=== PATIENT | male | born 1960 | race Caucasian/White ===

== ENCOUNTER → 2022-02-05 | Outpatient (CLI) | payer OTHER ==
--- NOTE | 2022-02-05 14:29 | RAD ---
EXAMINATION: XR KNEE_RT 1-2 VIEWS CLINICAL HISTORY: Right knee pain. TECHNIQUE: XR KNEE_RT 1-2 VIEWS Number of Images/Views: 2 COMPARISON: None FINDINGS: Moderate medial and mild to moderate lateral compartment narrowing and chondrocalcinosis. No acute fr acture. No significant joint effusion. Vascular calcifications. IMPRESSION: Degenerative changes right knee as described, greatest in the medial compartment. Electronically signed by: Silas Landa DO (02/05/2022 2:27 PM) [id number]
--- NOTE | 2022-02-05 14:32 | RAD ---
EXAMINATION: XR HIP_RT 2-3VIEWS CLINICAL HISTORY: Right hip pain. TECHNIQUE: XR HIP_RT 2-3VIEWS Number of Images/Views: 2 COMPARISON: None FINDINGS: Marked superolateral joint space narrowing with essentially [id number] contact. Prominent subchondr al cysts in the superior acetabulum. Heterogeneous lucencies in the superolateral femoral head may be related to subchondral cysts but cannot exclude superimposed avascular necrosis. No significant tutu cular surface collapse. No acute fracture. Pubic symphysis and right SI joint maintained. IMPRESSION: Advanced degenerative changes right hip as described, cannot exclude superimposed avascular necrosis in the femoral head. Electronically signed by: Silas Landa DO (02/05/2022 2:30 PM) [id number]
== END ==
LOC: RAD 10:31
PROVIDERS: ATTEND Physician Assistant
DX: M17.11 Unilateral primary osteoarthritis, right knee (principal); M11.261 Other chondrocalcinosis, right knee; M25.851 Other specified joint disorders, right hip
CPT/HCPCS: 73502; 73560